=== PATIENT | female | born 1970 | race American Indian/Alaskan Native ===

== ENCOUNTER 2017-10-25 13:35 | Outpatient (CLI) | payer MEDICARE ==
--- NOTE | 2017-10-26 14:28 | Mammography Report ---
BILATERAL DIGITAL SCREENING MAMMOGRAM with CAD: 10/25/17 13:35:00 CLINICAL: Routine screening. COMPARISON:10/31/13 FINDINGS: The breasts are mostly fatty with a few bilateral scattered fibroglandular densities. No mass, architectural distortion or suspicious calcifications. IMPRESSION: No mammographic evidence of malignancy. BI-RADS CATEGORY: 1 - - Negative RECOMMENDATION: Routine mammographic screening in one year. COMMENT: Patient follow-up letters are generated by our [employer] application.
== END 2017-10-25 13:36 | disposition home or self-care (01) ==
LOC: SPVWC 13:35
PROVIDERS: ATTEND Internal Medicine
DX: Z12.31 Encounter for screening mammogram for malignant neoplasm of breast (principal)
CPT/HCPCS: 77067